=== PATIENT | female | born 1985 | race Caucasian/White ===

== ENCOUNTER 2020-11-28 08:14 | Outpatient (CLI) | payer BC, SELFPAY ==
--- NOTE | 2020-11-28 08:38 | XR_ITS ---
WS: [id number] LATERAL LUMBAR SPINE: 3 view. Lateral radiographs are performed in upright neutral, flexion and extension to the patient's toleranc e. HISTORY: LOW BACK PAIN COMPARISON: None available. Posterior lumbar vertebra are normally aligned on neutral position. Anterior lumbar fusion hardware w ith interbody spacer at L4-5. No subsidence. With flexion and extension there is no significant insta bility. Mild facet joint arthritis at L4-5 and L5-S1. No fractures. XR/XR lumbar spine f/e only [id number] IMPRESSION: 1. No lumbar spine fracture or instability. 2. Prior anterior fusion with interbody spacer at L4-5.
--- NOTE | 2020-11-28 08:38 | CT_ITS ---
WS: [id number] CT LUMBAR SPINE, noncontrast. HISTORY: LOW BACK PAIN TECHNIQUE: Contiguous 2.5 mm axial imaging are performed. Sagittal and coronal reformats are submitte d and reviewed. All CT scans at [facility] use at least one of these dose optimization te chniques: automated exposure control; mA and/or kV adjustment per patient size (includes targeted exa ms where dose is matched to clinical indication); or iterative reconstruction. IV contrast: None DLP: 1930.21 mGycm COMPARISON: None available. Posterior lumbar alignment is normal. Anterior fusion hardware at L4-5 with interbody spacer. Mild na rrowing of the L4-5 disc with moderate osteochondrosis along the endplates. No subsidence. No fractur es in the lumbar spine. Pedicles are intact. L1-2: Normal. L2-3: Normal. L3-4: Normal. L4-5: No central or foraminal stenosis. Very slight widening of the facet joints. Very mild annular d isc bulging. Small vertebral body osteophytes extending towards the foramen. Mild foraminal narrowing . L5-S1: Mild broad-based disc bulging posteriorly with no contact on the nerve roots. Mild bilateral facet joint arthritis. Sclerosis along the SI joints. A small amount of degenerative a ir in the SI joints. Focal single erosion in the posterior LEFT iliac side of the SI joint. CT/CT lumbar spine wo con* [id number] IMPRESSION: 1. Anterior lumbar fusion at L4-5 with interbody spacer. No complications are evident. 2. Mild bilateral foraminal narrowing at L4-5 due to combination of osteophyte s and disc bulging. 3. Mild bilateral degenerative SI joint arthritis.
== END 2020-11-28 08:15 | disposition home or self-care (01) ==
PROVIDERS: Visit Provider Nurse Practitioner
DX: M43.26 Fusion of spine, lumbar region (principal); M25.78 Osteophyte, vertebrae; M51.26 Other intervertebral disc displacement, lumbar region
CPT/HCPCS: 72120; 72131

== ENCOUNTER → 2021-11-29 10:40 | Outpatient (BNVA) | payer BC, MEDICAID, SELFPAY | PROVIDERS: PCP Family Medicine; Visit Provider Anesthesiology Pain Medicine | DX: M54.50 Low back pain, unspecified (principal); M79.604 Pain in right leg; M79.605 Pain in left leg | CPT/HCPCS: 99204 ==

== ENCOUNTER 2022-06-15 08:48 | Outpatient (CLI) | payer BC, MEDICAID, SELFPAY ==
--- NOTE | 2022-06-15 08:55 | XR_ITS ---
WS: [id number] Cervical spine, 4 views, 06/15/2022 Clinical Data: M54.12 - Radiculopathy, cervical region Comparison: None. Findings: No compression fractures are seen. The disc heights are normal. There is no prevertebral so ft tissue swelling. The odontoid is unremarkable. The soft tissues of the neck and the lung apices ar e normal. XR/XR cervical spine 3V* [id number] Impression: Negative cervical spine.
--- NOTE | 2022-06-15 09:30 | MR_ITS ---
WS: [id number] MRI CERVICAL SPINE NONCONTRAST HISTORY: M54.12 - Radiculopathy, cervical region COMPARISON: Radiograph 06/15/2022 Technique: Multiplanar, multisequence noncontrast imaging of the cervical spine. Normal cervical alignment with no compression fracture or significant disc space narrowing. Signal within the cervical cord is normal. Visualized posterior fossa is unremarkable. Craniocervical junction, C1 and C2 relationship, odontoid process and soft tissues are normal. C2-C3: Normal. C3-C4: Very shallow RIGHT foraminal osteophyte. C4-C5: Normal. C5-C6: Normal. C6-C7: Normal. C7-T1: Normal. Paraspinal soft tissue are normal. MR/MR cervical spin wo con* [id number] IMPRESSION: 1. No significant central or foraminal stenosis. 2. No significant facet joint arthritis. 3. No disc protrusions.
== END 2022-06-15 08:49 | disposition home or self-care (01) ==
PROVIDERS: PCP Family Medicine; Visit Provider Anesthesiology Pain Medicine
DX: M54.12 Radiculopathy, cervical region (principal); M25.78 Osteophyte, vertebrae
CPT/HCPCS: 72040; 72141

== ENCOUNTER → 2022-10-06 10:23 | Outpatient (BNVA) | payer BC, MEDICAID, SELFPAY | PROVIDERS: PCP Family Medicine; Visit Provider Nurse Practitioner Family | DX: J02.9 Acute pharyngitis, unspecified (principal); Z20.818 Contact with and (suspected) exposure to other bacterial communicable diseases | CPT/HCPCS: 87880 ==

== ENCOUNTER 2022-12-14 14:08 | Outpatient (CLI) | payer BC, MEDICAID, SELFPAY ==
--- NOTE | 2022-12-14 17:15 | US_ITS ---
WS: [id number] THYROID ULTRASOUND HISTORY: Hypothyroid COMPARISON: None available. Right lobe: 1.2 cm x 1.1 cm x 4.5 cm (w x ap x l). Volume: 3.1 cm3. Normal size and echotexture. No significant are dominant nodules are present. Left lobe: 1.2 cm x 1.1 cm x 4.4 cm (w x ap x l). Volume: 3.1 cm3. Normal size and echotexture. No significant or dominant nodules are present. Isthmus: 0.3 cm. Bilateral small cervical chain lymph nodes. IMPRESSION: Normal thyroid ultrasound.
== END 2022-12-14 14:09 | disposition home or self-care (01) ==
PROVIDERS: PCP Family Medicine; Visit Provider Internal Medicine
DX: E03.9 Hypothyroidism, unspecified (principal)
CPT/HCPCS: 76536

== ENCOUNTER → 2023-02-26 08:06 | Outpatient (BNVA) | payer BC, MEDICAID, SELFPAY | PROVIDERS: PCP Family Medicine; Visit Provider Physician Assistant | DX: M51.16 Intervertebral disc disorders with radiculopathy, lumbar region (principal); M47.816 Spondylosis without myelopathy or radiculopathy, lumbar region | CPT/HCPCS: 72110 ==

== ENCOUNTER 2023-03-26 06:40 | Outpatient (CLI) | payer BC, MEDICAID, SELFPAY ==
--- NOTE | 2023-03-26 07:15 | MR_ITS ---
WS: [id number] MRI LUMBAR SPINE NONCONTRAST HISTORY: lumbar pain COMPARISON: Lumbar spine radiographs 02/26/2023 TECHNIQUE: Sagittal and axial multisequence imaging is submitted. Prior anterior L4-5 disc fusion. Normal lumbar alignment with no compression fractures or marrow edema. Mild disc space narrowing and desiccation at L4-5 and L5-S1. Conus terminates normally at L1-2 disc level. L1-L2: Normal. L2-L3: Normal. L3-L4: Mild ligamentum flavum and facet arthritis. L4-L5: Mild annular disc bulging with mild ligamentum flavum and facet arthritis. Small vertebral bod y osteophytes. No stenosis. L5-S1: Central disc protrusion does not appear to contact the S1 nerve roots. There is mild proximal foraminal narrowing. No high-grade stenosis. Mild facet hypertrophy. Paravertebral soft tissues are negative. IMPRESSION: 1. Mild degenerative disc disease at L4-5 and L5-S1. Prior anterior fusion at L4-5. 2. Small central disc protrusion at L5-S1. Disc protrusion does not appear to contact the S1 nerve ro ots. 3. mild annular disc bulging at L4-5. No stenosis.
== END 2023-03-26 06:41 | disposition home or self-care (01) ==
LOC: RAD 06:40
PROVIDERS: PCP Family Medicine; Visit Provider Physician Assistant
DX: M47.816 Spondylosis without myelopathy or radiculopathy, lumbar region (principal); M51.16 Intervertebral disc disorders with radiculopathy, lumbar region; M51.27 Other intervertebral disc displacement, lumbosacral region; Z98.1 Arthrodesis status
CPT/HCPCS: 72148

== ENCOUNTER 2023-04-04 06:40 | Outpatient (CLI) | payer BC, MEDICAID, SELFPAY ==
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
== END 2023-04-04 06:41 | disposition home or self-care (01) ==
LOC: RAD 06:40
PROVIDERS: PCP Family Medicine; Visit Provider Family Medicine
DX: M79.642 Pain in left hand (principal)
CPT/HCPCS: 73130

== ENCOUNTER → 2024-02-13 14:10 | Outpatient (BNVA) | payer BC, MEDICAID, SELFPAY | PROVIDERS: PCP Family Medicine; Visit Provider Orthopaedic Surgery | DX: M54.9 Dorsalgia, unspecified (principal) | CPT/HCPCS: 72110 ==

== ENCOUNTER 2024-06-21 19:24 | Emergency (ER) | payer BC, MEDICAID, SELFPAY ==
[2024-06-21 19:31] VITALS: BP 148/81; PULSE 90; RESP 14; TEMP 36.7; O2SAT 100
[2024-06-21 19:37] VITALS: BP 148/81; PULSE 90; RESP 14; O2SAT 100
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
== END 2024-06-21 21:26 | disposition home or self-care (01) ==
PROVIDERS: Emergency Provider Physician Assistant; PCP Family Medicine
DX: M54.2 Cervicalgia (principal); M54.9 Dorsalgia, unspecified; M25.512 Pain in left shoulder; M25.511 Pain in right shoulder
CPT/HCPCS: 72040; 72072; 72100; 99284

== ENCOUNTER 2025-02-24 09:39 | Outpatient (CLI) | payer BC, MEDICAID, SELFPAY ==
--- NOTE | 2025-02-24 09:45 | XR_ITS ---
WS: [id number] XR lumbar spine 2-3V* [id number] REASON FOR EXAM: CHRONIC BACK PAIN FINDINGS: Mild straightening of the normal lordosis. Anterior interbody fusion device at L4-L5. Surgical appliance appears intact and in proper position and alignment. Joint space appears fused. No significant vertebral body abnormality. Mild narrowing of the L1-L2 disc space. Otherwise, the disc spaces are intact and well preserved. No spondylolysis. No significant spondylolisthesis. Mild degenerative arthropathy in the facet joints L3-S1. XR/XR lumbar spine 2-3V* [id number] IMPRESSION: Postoperative spine with mild degenerative spondylosis.
--- NOTE | 2025-02-24 09:45 | XR_ITS ---
WS: [id number] XR thoracic spine 3V* [id number] REASON FOR EXAM: CHRONIC BACK PAIN FINDINGS: Normal thoracic spine curvatures. No significant vertebral body abnormality. Minimal endplate sclerosis and osteophytosis in the midthoracic spine. Disc spaces intact and relatively well preserved. XR/XR thoracic spine 3V* [id number] IMPRESSION: Minimal degenerative spondylosis of the thoracic spine.
--- NOTE | 2025-02-24 09:45 | XR_ITS ---
WS: [id number] XR cervical spine min 6V [id number] REASON FOR EXAM: CHRONIC BACK PAIN FINDINGS: Mild straightening of the normal lordosis. Normal cervical vertebral bodies. Intervertebral disc spaces are intact and well preserved. No significant neutral listhesis. No significant listhesis develops during flexion or extension. XR/XR cervical spine min 6V [id number] IMPRESSION: Mild straightening of the normal lordosis otherwise no significant abnormality.
== END 2025-02-24 09:40 | disposition home or self-care (01) ==
LOC: RAD 09:41
PROVIDERS: PCP Family Medicine; Visit Provider Family Medicine
DX: M47.897 Other spondylosis, lumbosacral region (principal); R93.7 Abnormal findings on diagnostic imaging of other parts of musculoskeletal system; Z98.890 Other specified postprocedural states; M51.369 Other intervertebral disc degeneration, lumbar region without mention of lumbar back pain or lower extremity pain
CPT/HCPCS: 72052; 72072; 72100